=== PATIENT | male | born 1965 | race African-American/Black ===

== ENCOUNTER 2016-10-23 16:32 | Inpatient (IN) | payer OTHER ==
[~2016-10-23] VITALS: Ht 182.9 cm; Wt 105.7 kg
[~2016-10-23 16:32] MED LIST: ACID REDUCER75 MG PO; ATI1 PO; ATIVAN1 MG PO; FOL1 PO; FOLIC ACID1 MG PO; LATANOPROST OU; LOPERAMIDE2 MG PO; MECLIZINE HYD12.5 MG PO; METOPROLOL TART25 M1; METOPROLOL TART25 M1 PO; MOTRIN800 MG PO; PAROXETINE HCL20 M1 PO; PRA40; PRA40 PO; PROMETHAZINE12.5 M4 PO; SIMVASTATIN10 M1 PO; THI100 PO; TRAZODONE50 M1 PO; ZOF4 PO
--- NOTE | 2016-10-23 16:57 | NUR ---
PT WAS BROUGHT IN TO ED BY SIGNIFICANT OTHER W/CC OF ALCOHOL INTOXICATION AND CP. PT REPORTS HE'S BEEN DRINKING FOR 12-14 DAYS STRAIGHT. PT COMBATIVE AND UNCOOPERATIVE SCREAMING "I DON'T LIKE WHITE PEOPLE. DON'T FUCKING TOUCH ME". SIGNIFICANT OTHER AT BEDSIDE ATTEMPTING TO CALM PT. PT PLACED ON 4PT RESTRAINTS FOR SAFETY DUE TO DANGER TO SELF AND OTHERS. PT ATTEMPTING TO ASSAULT STAFF THAT ARE NON-COLORED. PT REPORTS CP BUT DENIES POINT OF PAIN OR RADIATION OF PAIN. PT'S SPEECH IS SLURRED AT THIS MOMENT BUT ABLE TO RESPOND TO QUESTIONS BEING ASKED. AAOX4 AT THIS TIME. DR. DAVALOS AT BEDSIDE FOR MSE. CALL LIGHT W/IN REACH. WILL CONTINUE TO MONITOR.
[2016-10-23 17:31] LABS: BASOPHIL % 0.6 % (0-2); PLATELET COUNT 183 x10^3mcL (130-400)
[2016-10-23 17:36] LABS: RED CELL DISTRIBUTION WIDTH 15.1 % (11.5-14.5)
[2016-10-23 17:49] LABS: CALCIUM 9.1 mg/dL (8.5-10.1); CARBON DIOXIDE 20.9 mmol/L (21-32); CHLORIDE SERUM 92 mmol/L (98-107); CREATININE SERUM 0.9 mg/dL (0.7-1.3); GFR1 > 60 mL/min; GLUCOSE SERUM 105 mg/dL (74-106); SODIUM SERUM 134 mmol/L (136-145)
--- NOTE | 2016-10-23 17:52 | NUR ---
PT RETURNED FROM CT SCAN. VSS. RESPS E/U. NO S/S OF DISTRESS NOTED. PHARMACY CALLED FOR MED ORDER. SO AT BEDSIDE. WILL CONTINUE TO MONITOR.
--- NOTE | 2016-10-23 18:05 | NUR ---
MEDICATED ORDERED ORDERED. PLEASE SEE EMR.
--- NOTE | 2016-10-23 18:48 | NUR ---
PT SLEEPING ON GURNEY IN POSITION OF COMFORT. RESPS E/U. NO S/S OF DISTRESS NOTED. CALL LIGHT W/IN REACH. WILL CONTINUE TO MONITOR.
--- NOTE | 2016-10-23 19:10 | NUR ---
REPORT GIVEN TO SUKH ROBINS FOR CONTINUATION OF CARE PRIMARY RN.
--- NOTE | 2016-10-23 19:10 | NUR ---
REPORT RECEIVED FROM SUKH PARKS. ALL QUESTIONS AND CONCERNS ADDRESSED.
[2016-10-23 19:35] LABS: AMPHETAMINE QUAL UR NONE DETECTED (NEG <=1000)
--- NOTE | 2016-10-23 20:07 | NUR ---
REPORT CALLED TO BURTON LUZ, ALL QUESTIONS AND CONCERNS ADDRESSED.
--- NOTE | 2016-10-23 20:15 | NUR ---
RECEIVED PT FROM ED VIA EARLE SCHMITT. ABLE TO FOLLOW COMMANDS. NO SOB NOTED. DENIES CHEST PAIN/PRESSURE AT THIS TIME, NSR ON THE MONITOR. DENIES ABDOMINAL DISCOMFORT. W/ UNSTEADY GAIT, PT ATTEMPTS TO GET OOB. IV SITE PATENT AND INTACT. SIDE RAILS UPX2. CALL LIGHT ON REACH. PRIMARY NURSE SUPIN AT BEDSIDE FOR CONTINUITY OF CARE
[2016-10-23 20:19] LABS: ALBUMIN 4.5 g/dL (3.4-5.0); BILIRUBIN DIRECT 0.26 mg/dL (0.0-0.2); BILIRUBIN TOTAL 0.74 mg/dL (0.20-1.00); CHOLESTEROL/HDL RATIO 2.1; MAGNESIUM 2.1 mg/dL (1.8-2.4); PHOSPHOROUS 3.5 mg/dL (2.5-4.9)
[2016-10-23 20:27] LABS: T3 TOTAL 0.82 ng/mL
--- NOTE | 2016-10-23 20:30 | NUR ---
PT TRANSFERRED TO TELE BED 208B WITH MY SELF, SUKH ACHARYA, AND EMT JORDAN AT PT SIDE. PT AWAKE AND ALERT, REMAINED COOPERATIVE AT TIME OF TRANSFER, AMBULATED WITH ASSISTANCE TO TELE BED. STOCKROOM KEEPERSUKH CANO AT PT SIDE TO ASSUME OF CARE OF PT. PT TRANSFERRED WITHOUT INCIDENCE.
[2016-10-23 20:34] LABS: microscopic required? YES; urine erythrocyte TRACE (NEGATIVE)
[2016-10-23 20:41] VITALS: BP 137/91
[2016-10-23 20:43] LABS: FREE T4 1.11 ng/dL (0.76-1.46); FREE THYROXINE INDEX 3.2 ug/dL (1.4-4.5); T4(THYROXINE) 8.7 ug/dL (4.7-13.3)
--- NOTE | 2016-10-23 20:55 | NUR ---
MEDICAL STUDENT AT BEDSIDE TO ASSESS PATIENT. IVF NS CONNECTED TO LEFT WRIST AND INFUSING AT 140ML/HR. PATIENT IS AWAKE, ALERT, STS HE IS AT [facility] RIGHT NOW. ABLE TO TELL HIS BIRTHDATE. DOES NOT REMEMBER HOW OLD HE IS. ABLE TO FOLLOW COMMNANDS AND MADE NEEDS KNOWN. SITTER AT BEDSIDE. WILL CONTINUE TO MONITOR.
--- NOTE | 2016-10-23 21:52 | NUR ---
APPEARS AGITATED, WANTED TO GET OUT OF BED. UNSTEADY GAIT NOTED. INFORMED PATIENT TO USE URINAL WHEN URINATE. KEPT NPO. ATIVAN 2MG IVP GIVEN, NO ADVERSE REACTION NOTED. WILL CONTINUE TO MONITOR. SITTER 1:1 AT BEDSIDE.
[2016-10-23 23:23] VITALS: BP 157/86
--- NOTE | 2016-10-23 23:34 | NUR ---
ASSISTED TO BATHROOM FOR BM, PATIENT WAS COMBATIVE WHEN PHYSICAL THERAPY TEACHER WAS TRYING TO ASSIT HIM. ASSISTED BACK, SITTING ON THE EDGE OF BED AND REFUSED TO LAY BACK IN BED. KEPT ASKING FOR FOOD. DOCTOR POONAM NOTIFIED AND NOTED NEW ORDER FOR REGULAR DIET.
--- NOTE | 2016-10-23 23:50 | NUR ---
AGREED TO GO BACK IN BED. SANDWICH PROVIDED. TOLERATED WELL.
--- NOTE | 2016-10-24 02:14 | NUR ---
AWAKE, SITTING AT THE EDGE OF BED. REFUSED TO GO BACK TO BACK. REQUESTED A SHOWER. A WIPES PROVIDED ASSISTED BY HISTORIOGRAPHY TEACHER. UNSTEADY GAIT. ENCOURAGED TO GET BACK TO BED. ASKED FOR MORE JUICE. AGREED TO GO BACK TO BED AFTER JUICE GIVEN. ATIVAL 2MG IVP GIVEN FOR AGITATION. NO ADVERE REACTION NOTED. WILL CONTINUE TO MONITOR.
--- NOTE | 2016-10-24 04:54 | NUR ---
ASLEEP AT THIS TIME. NO ACUTE DISTRESS NOTED. IVF NS INFUSING WELL.
[2016-10-24 06:34] VITALS: BP 119/59
--- NOTE | 2016-10-24 06:35 | NUR ---
RESTING WITH EYES CLOSE. EASILY TO AROUSE. AM MEDS GIVEN, TOLERATED WELL. KEPT NPO FOR ULTRASOUND OF ABDOMEN. PATIENT MADE AWARE.
--- NOTE | 2016-10-24 07:30 | NUR ---
RECEIVED PATIENT AWAKE/ALERT IN BED NO ACUE DISTRESS NOTED, DENIES PAIN. IV INTACT, EXPLAINED POC/SAFETY MEASURES. PATIENT C/O RT LOWER BACK HAVE LUMP FOR A FEW MONTHS WANT TO BE CHECK INFORM PATIENT WILL NOTIFIED MD. NEEDS ANTICIPATED. CALL LIGHT WITHIN REACH.
[2016-10-24 08:00] VITALS: BP 137/72
--- NOTE | 2016-10-24 08:41 | NUR ---
ECHOCARDIOGRAM PENDING PATIENT HAD LAST 6 MONTHS
--- NOTE | 2016-10-24 08:45 | NUR ---
DR. CALVERT SEEN PATIENT AT THIS TIME, DISCUSS POC WITH PATIENT, MONITOR ALCHOL LEVEL IF IMPROVED POSSIBLE D/C. DR. DE LA CRUZ WAS MADE AWARE PATIENT'S RT LOWER BACK WITH LUMP.
--- NOTE | 2016-10-24 09:04 | NUR ---
PATIENT RESTING IN BED NO COMPLAINTS, ALL DUE MEDS GIVEN, NEEDS ANTICIPATED.
--- NOTE | 2016-10-24 11:22 | NUR ---
PATIENT RESTING IN BED AWAKEN, CALM, NO COMPLAINTS. BS 115 NO COVERAGE NEEDED. NEW IV BAG HANG ORDERED. CONT TO MONITOR.
--- NOTE | 2016-10-24 12:54 | NUR ---
Patient sitting in bed no complaints, done with lunch. DM teaching completed, explained s/sx; diet and exercise; lab - AIC. All questions answer.
--- NOTE | 2016-10-24 16:27 | NUR ---
PATIENT RESTING IN BED NO COMPLAINTS, SEEN BY DR. PIERCE FOR PSYCH CONSULT. BS 102 NO COVERAGE NEEDED. CONT TO MONITOR.
[2016-10-24 17:25] VITALS: BP 149/79
--- NOTE | 2016-10-24 17:33 | NUR ---
PATIENT RESTING IN BED NO COMPLAINTS, - MERY AT BEDSIDE ASKING FOR UPDATE ON PATIENT'S CONDITION; INFORM STILL CONT MONITOR ALCOHOL WITHDRAWAL; PER [employer] BLACK PATIENT NEED REHAB/SOBER. NEW IV BAG HANG, NEEDS ANTICIPATED.
--- NOTE | 2016-10-24 19:05 | NUR ---
SEEN ASLEEP, NO RESP DISTRESS NOTED ON ROOM AIR. ST AT 96 ON TELE MONITOR. IVF NS TO LEFT WRIST INFUSING WELL AT 42ML/HR. SCD TO BLE. WILL CONTINUE TO MONITOR WHEN PATIENT IS AWAKE.
[2016-10-24 21:28] VITALS: BP 161/86
[2016-10-24 22:35] VITALS: Ht 182.9 cm; Wt 105.7 kg
[2016-10-25 05:42] VITALS: BP 152/88
[2016-10-25 06:07] LABS: BASOPHIL % 0.5 % (0-2)
[2016-10-25 06:17] LABS: ALBUMIN 3.7 g/dL (3.4-5.0); ALKALINE PHOSPHATASE 64 U/L (46-116); ALT/SGPT 67 U/L (16-63); AST/SGOT 51 U/L (15-37); BILIRUBIN DIRECT 0.29 mg/dL (0.0-0.2); CARBON DIOXIDE 26.9 mmol/L (21-32); CHLORIDE SERUM 101 mmol/L (98-107); CREATININE SERUM 0.8 mg/dL (0.7-1.3); GFR1 > 60 mL/min; GLUCOSE SERUM 107 mg/dL (74-106); MAGNESIUM 1.9 mg/dL (1.8-2.4); PHOSPHOROUS 2.7 mg/dL (2.5-4.9); POTASSIUM SERUM 3.7 mmol/L (3.5-5.1); SODIUM SERUM 138 mmol/L (136-145); TOTAL PROTEIN, SERUM 7.3 g/dL (6.4-8.2)
--- NOTE | 2016-10-25 06:31 | NUR ---
NO ANY DISTRESS THROUGHOUT SHIFT. VSS. DENIES PAIN. NO AGITATION OR ANXIETY NOTED. AMBULATORY TO BATHROOM WITH STEADY GAIT. IVF NS INFUSING WELL.
[2016-10-25 07:10] LABS: PLATELET COUNT 116 x10^3mcL (130-400); RED CELL DISTRIBUTION WIDTH 14.8 % (11.5-14.5)
--- NOTE | 2016-10-25 07:50 | NUR ---
RECEIVED PT IN BED. ASSESSED AND DOCUMENTED. DENIES PAIN THIS TIME. SAFTEY PRECAUTIONS ON. WILL MONITOR.
--- NOTE | 2016-10-25 08:45 | NUR ---
AND RESIDENTS DID ROUNDS. EXPLAINED THE PLAN OF CARE AND ANSWERED ALL PT'S QUESTIONS.
[2016-10-25 09:48] VITALS: BP 153/78
[2016-10-25] MEDS ORDERED: ATIVAN1 MG PO (09:51)
[2016-10-25] MEDS ORDERED: ZOF4 PO (09:53)
[2016-10-25 10:46] VITALS: BP 153/78
[2016-10-25 12:59] VITALS: BP 134/88
[2016-10-25] MEDS ORDERED: NEU300 PO (14:55)
[2016-10-25] MEDS ORDERED: ROZEREM8 M1 PO (14:55)
--- NOTE | 2016-10-25 15:45 | NUR ---
PT'S CAME TO SHEARER HELPER PT.PT IS STABLE. DENIES PAIN.IV AND TELE REMOVED. MANAGER CODING WHEELED PT DOWN TO DC OFFICE.DC INSTRUCTION GIVEN AND PRESCRIPTION GIBVEN.PT DC HOME.
== END 2016-10-25 15:45 | disposition home or self-care (01) | DRG 243 ==
LOC: ED 16:32 → DU 19:32
PROVIDERS: Emergency Medicine; ADMIT Family Medicine
DX: K21.9 Gastro-esophageal reflux disease without esophagitis (principal); N17.0 Acute kidney failure with tubular necrosis; G92 Toxic encephalopathy; F10.10 Alcohol abuse, uncomplicated; I10 Essential (primary) hypertension; R31.9 Hematuria, unspecified; F41.9 Anxiety disorder, unspecified; Z86.711 Personal history of pulmonary embolism; R74.0 Nonspecific elevation of levels of transaminase and lactic acid dehydrogenase [LDH]; F17.210 Nicotine dependence, cigarettes, uncomplicated; D17.1 Benign lipomatous neoplasm of skin and subcutaneous tissue of trunk
CPT/HCPCS: 83880; 84439; G0480; J2060; J2270; J2405; J3411; J7030; Q0092

== ENCOUNTER 2016-11-24 16:36 | Inpatient (IN) | payer OTHER ==
[~2016-11-24] VITALS: Ht 182.9 cm; Wt 87.1 kg
[~2016-11-24 16:36] MED LIST changes: +NEU300 PO; +ROZEREM8 M1 PO
--- NOTE | 2016-11-24 16:43 | NUR ---
EKG IN TRIAGE
--- NOTE | 2016-11-24 16:50 | NUR ---
WHEN ENTERED THE ROOM, I WAS ASSESSING PT AND I TOUCHED HIS SHOUDER WHILE ASKING QUESTIONS AND HE STOOD UP AND SAID "I DONT WANT YOU TOUCHING ME, I DON'T EVEN NOW WY I AM HERE."
--- NOTE | 2016-11-24 17:03 | NUR ---
PT EXAMINED BY DR MADDOX
[2016-11-24 17:35] LABS: PLATELET COUNT 134 x10^3mcL (130-400)
[2016-11-24 17:36] LABS: RED CELL DISTRIBUTION WIDTH 14.9 % (11.5-14.5)
[2016-11-24 17:47] LABS: CALCIUM 8.8 mg/dL (8.5-10.1); CARBON DIOXIDE 22.4 mmol/L (21-32); CHLORIDE SERUM 100 mmol/L (98-107); CREATININE SERUM 0.8 mg/dL (0.7-1.3); GFR1 > 60 mL/min; GLUCOSE SERUM 86 mg/dL (74-106); POTASSIUM SERUM 3.8 mmol/L (3.5-5.1); SODIUM SERUM 140 mmol/L (136-145)
--- NOTE | 2016-11-24 17:47 | NUR ---
PT UNJABLE TO PROVIDE URINE SAMPLE AT THIS TIME.
[2016-11-24 17:59] LABS: ALBUMIN 4.6 g/dL (3.4-5.0); ALKALINE PHOSPHATASE 67 U/L (46-116); ALT/SGPT 113 U/L (16-63); AMYLASE 99 U/L (25-115); AST/SGOT 93 U/L (15-37); BILIRUBIN TOTAL 0.5 mg/dL (0.20-1.00); LIPASE 233 IU/L (73-393); MAGNESIUM 2.1 mg/dL (1.8-2.4); T4(THYROXINE) 6.6 ug/dL (4.7-13.3)
[2016-11-24 18:00] LABS: CHOLESTEROL 271 mg/dL (<200); HDL CHOLESTEROL 125 mg/dL (40-60); TOTAL PROTEIN, SERUM 9.1 g/dL (6.4-8.2)
--- NOTE | 2016-11-24 18:15 | NUR ---
PT AMBULATED TO AND FROM RESTROOM WITH STEADY GAIT NOTED, WITHOUT INCIDENCE.
--- NOTE | 2016-11-24 18:35 | NUR ---
PT VOMITIJNG CLEAR FLUID. DR MADDOX MADE AWARE, MEDICATED FOR NAUSEA, SEE EMAR.,
--- NOTE | 2016-11-24 18:47 | NUR ---
PT TAKEN TO CT VIA RIESHA.
--- NOTE | 2016-11-24 19:22 | NUR ---
RECEIVED REPORT FROM SUKH MASSEY, ALL QUESTIONS AND CONCERNS ADDRESSED AT THIS TIME.
[2016-11-24 19:33] LABS: microscopic required? YES; urine erythrocyte TRACE (NEGATIVE)
[2016-11-24 19:44] LABS: AMPHETAMINE QUAL UR NONE DETECTED (NEG <=1000)
[2016-11-24 21:02] LABS: CHOLESTEROL/HDL RATIO 2.3; PHOSPHOROUS 3.3 mg/dL (2.5-4.9)
--- NOTE | 2016-11-24 21:02 | NUR ---
REPORT GIVEN TO SUKH PAEZ. ALL QUESTIONS AND CONCERNS ADDRESSED AT THIS TIME.
[2016-11-24 21:24] VITALS: BP 155/90
--- NOTE | 2016-11-24 21:31 | NUR ---
RECEIVED PT FROM ED VIA OSKAR. ORIENTED PT TO ROOM AND SURROUNDINGS. IV NOTED TO LFA PATENT AND INTACT .TELE 13 PLACED ON PT READING STA. INSTRUCTED PT ON THE USE OF CALL LIGHT FOR ASSISATNCE. ENDORSED PT TO PRIMARY NURSE MELI
--- NOTE | 2016-11-24 22:42 | NUR ---
RECEIVED PT IN BED. NEW ADNM. FROM ER. ALERT AND ORIENTED. DENIES HEADACHE/DIZZINESS. RESP. EVEN AND UNLABORED, ON ROOM AIR, LUNGS SOUNDS CLEAR BILAT. NO DISTRESS NOTED. AFEBRILE AND VITAL SIGNS STABLE. ST/SR ON THE MONITOR, DENIES CHEST PAIN OR ANY DISCOMFORT AT THIS TIME. DUE MEDS GIVEN ORDERED, YESENIA. WELL. STARTED ON IVF, NS AT 100ML/HR, INFUSING VIA LFA, SITE CLEAR. KEPT COMFORTABLE. CALL LIGHT WITHIN REACH, INSTRUCTED TO CALL FOR ASSIST. IF NEEDED, PT VERBALIZED UNDERSTANDING.WILL CONTINUE TO MONITOR.
[2016-11-25 06:17] LABS: CALCIUM 7.9 mg/dL (8.5-10.1); CARBON DIOXIDE 18.8 mmol/L (21-32); CHLORIDE SERUM 100 mmol/L (98-107); CREATININE SERUM 0.7 mg/dL (0.7-1.3); GFR1 > 60 mL/min; GLUCOSE SERUM 62 mg/dL (74-106); MAGNESIUM 2.2 mg/dL (1.8-2.4); POTASSIUM SERUM 3.8 mmol/L (3.5-5.1); SODIUM SERUM 140 mmol/L (136-145)
[2016-11-25 06:19] LABS: BASOPHIL % 0.7 % (0-2)
--- NOTE | 2016-11-25 06:26 | NUR ---
NO AGITATION NOTED. CALM AT THIS TIME. DUE MEDS GIVEN ORDERED, YESENIA. WELL. NO N/V NOTED. IVF INTACT AND INFUSING ORDERED. SITE CLEAR. AFEBRILE AND VITAL SIGNS STABLE. DENIES PAIN OR ANY DISCOMFORT. WILL CONTINUE TO MONITOR.
[2016-11-25 06:29] VITALS: BP 150/71
[2016-11-25 06:46] LABS: PLATELET COUNT 114 x10^3mcL (130-400); RED CELL DISTRIBUTION WIDTH 14.9 % (11.5-14.5)
--- NOTE | 2016-11-25 07:50 | NUR ---
PATEINT IS A/OX4. PT IS TERRA. SEIZURE PRECATIONS ORDERED. ALL PULSES PALPABLE. PT IS QUIETLY RESTING IN BED AT THIS TIME. SCDS ARE APPLIED TO LOWER EXTREMITIES BILATERALLY. LUNG SOUNDS ARE CLEAR BILATERALLY WITH NO SIGNS OF RESPIRATOORY DISTRESS. PT HAS SMALL PERSISTANT TREMORS. DENIES CHEST PAIN. BOWEL SOUNDS ARE ACTIVE. PT IS VOIDS WELL WITH NO DIFFICULTY. IV FLUIDS INFUSING ORDERED. CALL LIGHT WITHIN REACH. WILL MONITOR AND CONTINUE PLAN OF CARE.
--- NOTE | 2016-11-25 09:00 | NUR ---
DR PECK MADE ROUNDS WITH OTHER MEDICAL STAFF. WILL UPDATE PLAN OF CARE.
--- NOTE | 2016-11-25 09:10 | NUR ---
PT COMPLAINED OF HEADACHE. TYLENOL WAS GIVEN ORDERED. WILL REASSESS.
--- NOTE | 2016-11-25 09:45 | NUR ---
PT IS RESTING COMFORTABLE IN BED. DENIES HEADACHE AT THIS TIME.
--- NOTE | 2016-11-25 10:00 | NUR ---
PT COMPLAINED OF BEING NAUSEATED. MEDICATION GIVEN ORDERED FOR NAUSEA.
--- NOTE | 2016-11-25 11:30 | NUR ---
PT HAD SHOWER ORDERED. FEELS MUCH BETTER AND COMFORTABLE IN BED. CALL LIGHT WITHIN REACH. DENIES ANY PAIN AT THIS TIME.
--- NOTE | 2016-11-25 12:00 | NUR ---
PT COMPLAIN OF HEARTBURN. DR BARBER NOTIFIED AND MADE AWARE. NO NEW FURTHER ORDERS AT THIS TIME.
[2016-11-25 13:54] VITALS: BP 153/88
--- NOTE | 2016-11-25 14:34 | NUR ---
[facility] VALUE [address]69. DR BARBER NOTIFIED AND MADE AWARE. NO FURTHER ORDERS AT THIS TIME.
--- NOTE | 2016-11-25 17:52 | NUR ---
PT IS RESTING CALMLY IN BED. DENIES HEADACHE AT THIS TIME. . DENIES ANY PAIN AT THIS TIME. CALL LIGHT WITHIN REACH.
[2016-11-25 18:19] VITALS: BP 141/83
--- NOTE | 2016-11-25 20:00 | NUR ---
RECEIVED PT IN BED AAOX4 NO ACUTE DISTRESS NOTED, PT DENY PAIN AT THE MOMENT , LUNG SOUNDS CTA, ABD SOFT BS ACTIVE X4 , PT C/O LOOSE STOOL , WILL CON'T TO MONITOR PT CLOSELY , , PT'S ON TELE NUMBER [address] HR 101, PIV TO LFA INTACT INFUSING WELL , NO SZ ACTIVITU NOTED, SIDE RAILS PADDED FOR SAFETY.
[2016-11-25 20:48] VITALS: BP 149/81
--- NOTE | 2016-11-26 01:28 | NUR ---
RECEIVED REPORT FROM PIA LUZ. WILL ASSUME PT CARE. PT IS CURRENTLY RESTING IN POSITION OF COMFORT. PT BREATHING IS EVEN AND UNLABORED. IV TO LFA PATENT AND INFUSING WELL, RUNNING NS AT 125 ML/HR. NO S/S OF PAIN OR DISTRESS NOTED AT THIS TIME. HOB AT 45 DEGREES. CALL LIGHT WITHIN REACH. WILL CONTINUE TO MONITOR FOR ANY ACUTE CHANGES.
[2016-11-26 05:16] VITALS: BP 146/79
[2016-11-26 07:19] LABS: PLATELET COUNT 109 x10^3mcL (130-400); RED CELL DISTRIBUTION WIDTH 14.6 % (11.5-14.5)
--- NOTE | 2016-11-26 07:20 | NUR ---
PT RECEIVED. AT THIS TIME THE PATIENT IS RESTING IN BED. PT IS AAO X 4. SEIZURE PRECAUTIONS INITIATED. CARDIAC TELE NUMBER [address]. PATIENT RESPIRATIONS ARE EVEN AND UNLABORED ON ROOM AIR. IV IS INFUSING. ALL SAFETY PRECAUTIONS ARE IN PLACE. WILL CONTINUE TO MONITOR.
[2016-11-26 07:39] LABS: CALCIUM 8.4 mg/dL (8.5-10.1); CARBON DIOXIDE 21.9 mmol/L (21-32); CHLORIDE SERUM 100 mmol/L (98-107); CREATININE SERUM 0.7 mg/dL (0.7-1.3); GFR1 > 60 mL/min; GLUCOSE SERUM 95 mg/dL (74-106); MAGNESIUM 2.1 mg/dL (1.8-2.4); PHOSPHOROUS 1.8 mg/dL (2.5-4.9); POTASSIUM SERUM 4.3 mmol/L (3.5-5.1); SODIUM SERUM 137 mmol/L (136-145)
[2016-11-26 07:42] VITALS: BP 148/84
--- NOTE | 2016-11-26 08:20 | NUR ---
DR DOTY AND TEAM TALKED TO THE PATIENT. ALL PATIENT QUESTIONS WERE ANSWERED. PT REQUESTED TO STAY IN HOSPITAL AN ADDITIONAL DAY. WILL CONTINUE TO MONITOR PT.
[2016-11-26 10:26] VITALS: BP 138/71
--- NOTE | 2016-11-26 12:40 | NUR ---
PT IS CURRENTLY RESTING IN BED. PT C/O ABDOMINAL PAIN WHICH WAS TREATED WITH TORADOL. WILL CONTINUE TO MONITOR PAIN LEVEL. ALL SAFETY MEASURES IN PLACE.
--- NOTE | 2016-11-26 17:10 | NUR ---
PT REQUESTED TO SHOWER. DR GO GAVE OK FOR PATIENT TO SHOWER. PATIENT HAS BEEN SALINE LOCKED. IV SITE WAS WRAPPED WITH WATERPROOF COVERING. PT WAS ABLE TO SHOWER HIMSELF. TOLERATED PROCEDURE WELL. ALL SAFETY MEASURES IN PLACE. WILL CONTINUE TO MONITOR.
[2016-11-26 17:19] VITALS: BP 129/81
--- NOTE | 2016-11-26 18:10 | NUR ---
PT IS CURRENTLY EATING. NO SIGNS OF ACUTE DISTRESS ARE NOTED. NO INDICATION OF PAIN NOTED. WILL CONTINUE TO MONITOR PT AND ENDORSE CARE TO NEXT SHIFT AT SHIFT CHANGE.
--- NOTE | 2016-11-26 20:25 | NUR ---
AWAKE AND VERBALLY RESPONSIVE. ABLE TO MAKE NEEDS KNOWN. SKIN WARM AND DRY TO TOUCH, RESPIRATION EVEN AND UNLABORED,DENIES ANY SHORTNESS OF BREATHE. DENIES ANY CHEST PAIN/DISCOMFORT AT THIS TIME. PLACED CALL LIGHT WITHIN REACH AND INSTRUCTED TO CALL FOR ASSITANCE NEEDED AND VERBALIZED UNDERSTANDING.
[2016-11-26 21:02] VITALS: BP 142/73
--- NOTE | 2016-11-27 00:10 | NUR ---
EYES CLSOED, NO FACIAL GRIAMCING NOTED. RESPIRATION EVEN AND UNLABORED. NO S/S OF ACUTE DISTRESS. CALL LIGHT WITHIN REACH. CONTINUE TO MONITOR.
[2016-11-27 06:02] LABS: BASOPHIL % 0.4 % (0-2); RED CELL DISTRIBUTION WIDTH 14.4 % (11.5-14.5)
[2016-11-27 06:04] VITALS: BP 140/83
--- NOTE | 2016-11-27 06:19 | NUR ---
BLOOD SUGAR TAKEN 132MG/DL. NO INSULIN COVERAGE GIVEN. ALL DUE MEDICATIONS GIVEN AND WELL TOLERATED. DENIES ANY CHEST PAIN/DISCOMFORT. ALL NEEDS ATTENDED.
[2016-11-27 06:36] LABS: CALCIUM 8.5 mg/dL (8.5-10.1); CARBON DIOXIDE 23.6 mmol/L (21-32); CHLORIDE SERUM 104 mmol/L (98-107); CREATININE SERUM 0.7 mg/dL (0.7-1.3); GFR1 > 60 mL/min; GLUCOSE SERUM 130 mg/dL (74-106); MAGNESIUM 1.8 mg/dL (1.8-2.4); PHOSPHOROUS 2.5 mg/dL (2.5-4.9); POTASSIUM SERUM 3.7 mmol/L (3.5-5.1); SODIUM SERUM 137 mmol/L (136-145)
[2016-11-27 06:42] LABS: PLATELET COUNT 106 x10^3mcL (130-400)
--- NOTE | 2016-11-27 07:10 | NUR ---
RESTING IN BED, AROUSABLE TO LIGHT NOISE, ABLE TO VERBALIZE NEEDS WITH CLEAR AND COHERENT SPEECH, ON TELE #13 SR ON MONITOR, RRR, S1&S2 NOTED, DENIES CHEST PAIN, PRESSURE, OR DISCOMFORT, IV AT LFA INFUSING NS AT 125ML/HR, CALL LIGHT WITHIN REACH, WILL CONTINUE TO PROVIDE CARE.
--- NOTE | 2016-11-27 08:39 | NUR ---
ABLE TO TAKE ALL PO MEDS WITHOUT GI DISTRESS, DENIES HEART RELATED PAIN, PRESSURE OR DISCOMFORT, VITAL SIGNS WNL, BP 123/83
--- NOTE | 2016-11-27 09:15 | NUR ---
ROUNDS WITH DR LO AND MEDICAL TEAM, UPDATED PT ON CURRENT POC.
[2016-11-27 09:22] VITALS: BP 123/83
[2016-11-27] MEDS ORDERED: LIPI10 PO (09:49)
[2016-11-27] MEDS ORDERED: THERAGRAN-M1 TA4 PO (09:50)
[2016-11-27] MEDS ORDERED: THI100 PO (09:50)
[2016-11-27] MEDS ORDERED: FOL1 PO (09:50)
[2016-11-27] MEDS ORDERED: ECO81 PO (09:52)
[2016-11-27] MEDS ORDERED: TYL325 PO (10:57)
[2016-11-27] MEDS ORDERED: PRI20 PO (10:59)
[2016-11-27] MEDS ORDERED: ATI1 PO (10:59)
[2016-11-27 11:28] VITALS: BP 123/83
--- NOTE | 2016-11-27 11:48 | NUR ---
PATIENT DISCHARGED HOME, REVIEWED DISCHARGE INSTRUCTIONS WITH PATIENT AND , INCLUDING CALLING PCP ON 11/29/16 TO SCHEDULE A FOLLOW UP APPOINTMENT, PATIENT AND VERBALIZED UNDERSTANDING OF DISCHARGE INSTRUCTIONS. PATIENT AMBULATED DOWNSTAIRS WITH AND PRIMARY RN.
== END 2016-11-27 11:48 | disposition home or self-care (01) | DRG 243 ==
LOC: ED 16:36 → DU 20:13
PROVIDERS: Emergency Medicine; ADMIT Family Medicine
DX: K21.9 Gastro-esophageal reflux disease without esophagitis (principal); N17.0 Acute kidney failure with tubular necrosis; G92 Toxic encephalopathy; D61.818 Other pancytopenia; K70.0 Alcoholic fatty liver; F10.229 Alcohol dependence with intoxication, unspecified; F10.239 Alcohol dependence with withdrawal, unspecified; T51.0X1A Toxic effect of ethanol, accidental (unintentional), initial encounter; B08.1 Molluscum contagiosum; I10 Essential (primary) hypertension; E78.5 Hyperlipidemia, unspecified; F33.9 Major depressive disorder, recurrent, unspecified; F41.0 Panic disorder [episodic paroxysmal anxiety]; F17.210 Nicotine dependence, cigarettes, uncomplicated; Z68.26 Body mass index [BMI] 26.0-26.9, adult; Z91.19 Patient's noncompliance with other medical treatment and regimen; Y90.8 Blood alcohol level of 240 mg/100 ml or more; Y92.009 Unspecified place in unspecified non-institutional (private) residence as the place of occurrence of the external cause
CPT/HCPCS: 36600; 83880; 85378; G0480; J1885; J2405; J3490; J7030; Q0092; Q9967

== ENCOUNTER 2017-01-20 12:52 | Inpatient (IN) | payer OTHER ==
[~2017-01-20] VITALS: Ht 182.9 cm; Wt 101.8 kg
[~2017-01-20 12:52] MED LIST changes: +ECO81 PO; +LIPI10 PO; +PRI20 PO; +THERAGRAN-M1 TA4 PO; +TYL325 PO
--- NOTE | 2017-01-20 13:25 | NUR ---
PT BIBA C/O ETOH AND VOMITING BLOOD THIS AM. PT'S STS PT HAS BEEN DRINKING SINCE DEC 31, 2016, EVERYDAY. PLACED PT ON CM. VSS. PT A/O X 4, PT'S REP E/U, PT ABLE TO SPEAK FULL SENTENCES. AWAITING DR PEOPLES.
--- NOTE | 2017-01-20 14:05 | NUR ---
DR ACKERMAN AT BEDSIDE
[2017-01-20 15:08] LABS: BASOPHIL % 0 % (0-2); PLATELET COUNT 113 x10^3mcL (130-400)
--- NOTE | 2017-01-20 15:13 | NUR ---
MRSA SPECIMEN TAKEN AND SENT TO THE LAB
[2017-01-20 15:29] LABS: CALCIUM 8.4 mg/dL (8.5-10.1); CARBON DIOXIDE 26.5 mmol/L (21-32); CHLORIDE SERUM 82 mmol/L (98-107); CREATININE SERUM 0.8 mg/dL (0.7-1.3); GFR1 > 60 mL/min; GLUCOSE SERUM 176 mg/dL (74-106); POTASSIUM SERUM 3.5 mmol/L (3.5-5.1); SODIUM SERUM 127 mmol/L (136-145)
[2017-01-20 15:34] LABS: ALBUMIN 3.9 g/dL (3.4-5.0); ALKALINE PHOSPHATASE 78 U/L (46-116); ALT/SGPT 71 U/L (16-63); AST/SGOT 67 U/L (15-37); BILIRUBIN TOTAL 0.9 mg/dL (0.20-1.00); TOTAL PROTEIN, SERUM 8.8 g/dL (6.4-8.2)
--- NOTE | 2017-01-20 16:15 | NUR ---
MEDICATED PT ORDERED, SEE MAR. WILL MONITOR FOR ADVERSE REACTIONS
[2017-01-20 16:49] LABS: MAGNESIUM 2.6 mg/dL (1.8-2.4); PHOSPHOROUS 3.1 mg/dL (2.5-4.9)
[2017-01-20 16:52] LABS: FREE T4 0.89 ng/dL (0.76-1.46); FREE THYROXINE INDEX 2.6 ug/dL (1.4-4.5); T3 TOTAL 0.42 ng/mL; T4(THYROXINE) 6.9 ug/dL (4.7-13.3)
--- NOTE | 2017-01-20 16:52 | NUR ---
INSTRUCTIONAL TECHNOLOGY FACILITATOR AT BEDSIDE
[2017-01-20 16:55] LABS: CHOLESTEROL/HDL RATIO 2.4
[2017-01-20 17:29] VITALS: BP 164/95
--- NOTE | 2017-01-20 17:33 | NUR ---
RECEIVED PT FROM ED VIA OSKAR. ORIENTED PT TO ROOM AND SURROUNDINGS. IV NOTED TO RH PATENT AND INTACT .TELE 2 PLACED ON PT READING STA. INSTRUCTED PT ON THE USE OF CALL LIGHT FOR ASSISTANCE. ENDORSED PT TO PRIMARY NURSE LATRELL
--- NOTE | 2017-01-20 18:10 | NUR ---
PT RESTING IN BED, COMPLAINING OF NAUSEA, TREMORS, AND ANXIETY, NO RESPIRATORY DISTRESS NOTED. STATED HE PREFERRED ATIVAN IV BECAUSE IT WORKS FASTER. ATIVAN IV AND ZOFRAN IV GIVEN. EMESIS BAGS PLACED AT BEDSIDE, CALL LIGHT WITHIN REACH.
--- NOTE | 2017-01-20 18:45 | NUR ---
PT RESTING IN BED, NO RESPIRATORY DISTRESS NOTED, CONTINUES TO COMPLAIN OF NAUSEA.
[2017-01-20 18:48] LABS: AMYLASE 61 U/L (25-115); LIPASE 197 IU/L (73-393)
--- NOTE | 2017-01-20 19:19 | NUR ---
DEXTROSE 5% NACL 0.9% 1000 ML @ 150 ML/HR CONFIRMED WITH DR HA BEFORE ADMINISTERING. PT RESTING IN BED, NO RESPIRATORY DISTRESS NOTED.
--- NOTE | 2017-01-20 19:35 | NUR ---
RECEIVED A BEDSIDE REPORT. SEEN IN BED AAOX4. BREATHING EASY ON ROOM AIR. GEN BODY WEAKNESS. SEIZURE PRECAUTION FOR ALC WITHDRAWAL PROTOCAL MAINTAINED. TEL# [address] LUNG SOUND CTA. NO VOMITING NOTED AT THIS TIME, STS JUST MILD NAUSEA. KEPT NPO. IVF D5NS AT 150ML/HR INFUSING WELL TO RT HAND IV SITE. SCD TO BLE INPLACED. PLAN OF CARE DISCUSSED. CALL LIGHT PLACED WITHIN EASY REACH. SIDERAILS UP X2.
--- NOTE | 2017-01-20 20:00 | NUR ---
INCONTINENCE AT THIS TIME, FELICITAS GARNER CHANGED. ENCOURAGED PATIENT TO USE URINAL TO VOID. WILL CONTINUE TO MONITOR.
[2017-01-20 20:03] VITALS: BP 155/74
--- NOTE | 2017-01-20 20:14 | NUR ---
FEBRILE 100.7, TYLENOL 650MG PO GIVEN. STS HAVING TIGHTNESS AND PAIN TO CHEST AREA 5/10 ON PAIN SCALE. BP 155/74, HR 125. MORPHINE 2MG IVP SLOWLY GIVEN. IVF DTNS CONTINUED ATG 150ML/HR.
--- NOTE | 2017-01-20 20:30 | NUR ---
SEEN BY DOCTOR SEBAS. EGD SCHEDULED FOR TOMORROW. PATIENT MADE AWARE AND STS " HE ALREAYD EXPLAINED IT TO ME".
--- NOTE | 2017-01-20 22:00 | NUR ---
CONSENT FOR ESOPHAGOGASTRODUODENOSCOPY AND MODERATE ANESTHESIA SIGNED BY PATIENT WHO IS AWAKE, ALERT, ORIENTED X4.
[2017-01-20 23:19] VITALS: BP 112/73
--- NOTE | 2017-01-21 01:44 | NUR ---
PATIENT CALLED STS IV BEEPING. FOUND BLOOD STAIN ON THE LINEN WITH ONE SMALL CLOT. PATIENT STS HE THROWING UP. LINEN AND GOWN CHANGED. DENIES DIZZINESS OR HEADACHE. ATIVAN 2MG IV GIVEN FOR TREMUR AND AGITATION. WILL CONTINUE TO MONITOR. IVF D5NS CONTINUED AT 150ML/HR.
--- NOTE | 2017-01-21 03:00 | NUR ---
DOCTOR RALEIGH NOTIFIED OF THE CURRENT CONDITION. WILL CONTINUE TO MONITOR.
[2017-01-21 03:10] LABS: microscopic required? YES; urine erythrocyte 3+ (NEGATIVE)
[2017-01-21 03:29] LABS: AMPHETAMINE QUAL UR NONE DETECTED (NEG <=1000)
[2017-01-21 05:45] VITALS: BP 148/82
--- NOTE | 2017-01-21 05:46 | NUR ---
KEPT NPO FOR EGD. V/S STABLE, AFEBRILE THIS MORNING. DENIES PAIN. VOIDED VIA URINAL. NO BM. NO SEIZURE ACTIVITY. IVF D5NS CONTINUED AT 150ML/HR.
[2017-01-21 06:12] LABS: BASOPHIL % 0.4 % (0-2); RED CELL DISTRIBUTION WIDTH 13.9 % (11.5-14.5)
[2017-01-21 06:35] LABS: CARBON DIOXIDE 28.2 mmol/L (21-32); CHLORIDE SERUM 85 mmol/L (98-107); CREATININE SERUM 0.7 mg/dL (0.7-1.3); GFR1 > 60 mL/min; GLUCOSE SERUM 159 mg/dL (74-106); MAGNESIUM 2.1 mg/dL (1.8-2.4); PHOSPHOROUS 1.3 mg/dL (2.5-4.9); POTASSIUM SERUM 3.3 mmol/L (3.5-5.1); SODIUM SERUM 125 mmol/L (136-145)
[2017-01-21 07:47] LABS: PLATELET COUNT 74 x10^3mcL (130-400)
--- NOTE | 2017-01-21 08:00 | NUR ---
AWAKE DROWSY BUT AROUSABLE. ALERT TO NAME, , DATE, TIME AND PLACE. SEIZURE PRECAUTIONS IN PLACE. ALCOHOL WITHDRAWL PROTOCOL. TEMP 98.9. TELE #2 SINUS TACH RATE 116. RESP 18 EVEN. BREATH SOUNDS CLEAR. NO COUGH OR SOB. PULSE OX 100% RA. ABD SOFT, BOWEL TONES PRESENT. FOR EGD THIS AM. NO EDEMA. PULSES PRESENT. SCD IN PLACE. IV PATENT RIGHT HAND. CONVERTED TO SALINE LOCK. ARMBAND IDENTIFIED. PT TAKEN TO GI LAB [facility]IA [facility] AT THIS TIME.
--- NOTE | 2017-01-21 09:20 | NUR ---
PT RETURNED TO ROOM VIA GURNEY FROM GI LAB. AWAKE BUT DROWSY. FOLLOWS COMMANDS. ABLE TO STAND AND PIVOT TO BED. PT WEAK AND UNSTEADY. FALL PRECAUTIONS. BED ALARM ON. INSTRUCTED PT TO CALL FOR NURSE WHEN NEEDS TO URINATE. VERBALIZED UNDERSTANDING. TEMP 98.8 TQ=081, RESP 18, KN=362/80. PULSE OX 100% RA. IV SITE SWOLLEN, DC CATH TIP INTACT. RESTARTED #22 ANGIO TO RAC. IVF RESUMED NORMAL SALINE 150CC/HR. SIDE RAILS UP X3 PADDED FOR SEIZURE PRECAUTIONS. NO SEIZURE ACTIVITY NOTED. CALL LIGHT IN REACH. WILL CONTINUE TO MONITOR FOR SAFETY.
[2017-01-21 09:30] VITALS: BP 154/80
--- NOTE | 2017-01-21 11:30 | NUR ---
PT GOT OOB ON OWN. HAD LARGE EXPLOSIVE LOOSE DARK BROWNISH BLACK LIQUID STOOL WITH SOME SOFT STOOL MIXED ALL OVER THE BED, FLOOR, ALSO ON BED NEAR THE WINDOW PT WAS TRYING TO GET TO THE BATHROOM. ASSISTED THE PT BACK TO BED. BED BATH, GOWN AND LINEN CHANGED. MADE COMFORTABLE IN BED. BED ALARM ON. CALL LIGHT IN REACH. REMAINS DROWSY BUT FOLLOWS COMMANDS. SIDE RAILS UP X3. WILL CONTINUE TO MONITOR. MADE AWARE. AYA=[id number]. TO START ON CARDIAC DIET FOR LUNCH. PO FLUIDS GIVEN. TAKEN WELL WITH MEDS.
[2017-01-21 14:16] VITALS: BP 140/64
--- NOTE | 2017-01-21 16:30 | NUR ---
PED=[id number]. PT AWAKE. SITTING ON BEDSIDE VISITING WITH . UPDATED DR WITH PT STATUS. WILL BE OVER TO SPEAK WITH PT AND . VOIDED 300CC INGRID URINE. BED ALARM ON. WILL CONTINUE TO MONITOR.
--- NOTE | 2017-01-21 16:45 | NUR ---
DR LION HERE TO SPEAK WITH PT AND .
[2017-01-21 16:56] VITALS: BP 142/70
--- NOTE | 2017-01-21 19:15 | NUR ---
REPORT WITH BRIAN LUZ PUBLIC INFORMATION RELATIONS MANAGER AT BEDSIDE. PT AWAKE WATCHING TV. NO DISTRESS. BED ALARM ON. CALL LIGHT IN REACH. IV PATENT. INSTRUCTED TO CALL FOR ASSISTANCE. VERBALIZED UNDERSTANDING.
--- NOTE | 2017-01-21 19:20 | NUR ---
RECEIVED PT LAYING IN BED. SEIZURE PRECAUTIONS IN PLACE. PT IS A/O X4. ALCOHOL PROTOCOL. PT IS ON TELE #2, SINUS TACH AT 106. PT DENIES CHEST PAIN. BILAT PERIPHERAL PULSES ARE PALPABLE. NO EDEMA NOTED. SCD IN PLACE. PT IS BREATHING ON RM, 02 SAT 98%. PT BREATHING EVEN AND UNLABORED. PT DENIES SOB. PT DOES NOT APPEAR TO BE IN RESP DISTRESS. PT LAST BM WAS EARLIER TODAY. ABD IS SOFT AND ROUND WITH ACTIVE BOWEL SOUNDS. PT DENIES N/V. PT IS ABLE TO FREELY VOID URINE WITHOUT DIFFICULTY. URINAL AT BEDSIDE. PT IS ABLE TO AMBULATE SELF BUT DOES HAVE MILD WEAKNESS. TREMORS ARE ALSO NOTED. BED ALARM IS ACTIVATED. PT SKIN IN DRY AND INTACT. NO REDNESS OR ECCHYMOSIS NOTED. PT DENIES PAIN AT THIS TIME. IV FLUIDS ARE INFUSING INTO THE RAC PER DOCTOR'S ORDERS. IV SITE IS DRY, PATENT, AND INTACT. ROOM IS FREE OF ANY SAFETY HAZARDS. BED IN LOWEST POSITION WITH PADDED SIDE RAILS UP. CALL LIGHT WITHIN REACH. WILL CONTINUE TO MONITOR
[2017-01-21 22:13] VITALS: BP 139/81
--- NOTE | 2017-01-22 00:13 | NUR ---
NOTIFIED OF PATIENT INCIDENT, PATIENT FOUND ON THE FLOOR. PT STATED HE SLIPPED ON WATER. WATER FOUND THROUGHOUT BATHROOM FLOOR, PT STATED HE WAS IN THE BATHROOM WASHING HIS CLOTHES. YELLOW SOCKS FOUND ON SINK, PT DENIES HITTING HIS HEAD AND OTHER INJURIES, CHARGE NURSE AND PHYSICIAN MADE AWARE, AWAITING ORDERS, WILL CONTINUE TO MONITOR
--- NOTE | 2017-01-22 01:56 | NUR ---
PT IS LAYING IN BED WITH EYES CLOSED, ASLEEP AT THIS TIME. PT DOES NOT APPEAR TO BE IN ANY DISTRESS AT THIS TIME. WILL CONTINUE TO MONITOR
[2017-01-22 05:33] VITALS: BP 152/84
--- NOTE | 2017-01-22 05:48 | NUR ---
PT STATED HE WAS ABLE TO RECEIVE A GOOD NIGHT'S REST. NO SIGNIFICANT CHANGES TO REPORT. PT COMPLIED WITH NURSING CARE THROUGHOUT THE SHIFT. PT REMAINS ON ETOH PROTOCOL. SEIZURE PRECAUTIONS REMAIN IN PLACE. IV FLUIDS REMAIN INFUSING IN THE RAC PER DOCTOR'S ORDER. IV SITE REMAINS, DRY, PATENT, AND INTACT. ROOM IS FREE OF SAFETY HAZARDS. BED IN LOWEST POSITION WITH SIDE RAILS UP X3. CALL LIGHT WITHIN REACH. WILL ENDORSE CARE TO DAY NURSE
[2017-01-22 06:19] LABS: BASOPHIL % 0.7 % (0-2); RED CELL DISTRIBUTION WIDTH 13.7 % (11.5-14.5)
[2017-01-22 06:23] LABS: PLATELET COUNT 60 x10^3mcL (130-400)
[2017-01-22 06:34] LABS: CALCIUM 8.4 mg/dL (8.5-10.1); CARBON DIOXIDE 29.1 mmol/L (21-32); CHLORIDE SERUM 93 mmol/L (98-107); CREATININE SERUM 0.7 mg/dL (0.7-1.3); GFR1 > 60 mL/min; GLUCOSE SERUM 98 mg/dL (74-106); PHOSPHOROUS 1.2 mg/dL (2.5-4.9); SODIUM SERUM 130 mmol/L (136-145)
[2017-01-22 06:42] LABS: POTASSIUM SERUM 2.9 mmol/L (3.5-5.1)
--- NOTE | 2017-01-22 08:01 | NUR ---
PT AWAKE, ALERT TO PERSON, , DATE, PLACE AND TIME. SPEECH CLEAR. NO SEIZURE ACTIVITY NOTED. SEIZURE PRECAUTIONS IN PLACE. CALM AND COOPERATIVE AT THIS TIME. BED ALARM ON FOR SAFETY. FALL PRECAUTIONS. INSTRUCTED TO CALL NURSE WHEN NEEDS TO GET OOB. VERBALIZED UNDERSTANDING. TEMP 98.5. TELE #2 SINUS RHYTHM. C/O "ACID IN MY THROAT." ON GERD MEDICATION. RESP 18 EVEN. BREATH SOUNDS CLEAR. PULSEOX 97% RA. ABD SOFT, BOWEL TONES PRESENT. LBM=[id number]. VOIDING VIA URINAL WITHIN REACH. IV PATENT RAC INFUSING NORMAL SALINE 150CC/HR. k=-2.9. DR ORDERED FOR K+ RIDER. SIDE RAILS UP X3. WILL CONTINUE TO MONITOR FOR SAFETY.
--- NOTE | 2017-01-22 08:22 | NUR ---
K+ RIDER STARTED AT THIS TIME VIA IV RAC PATENT. DENIES BURNING OR PAIN AT SITE WITH INFUSION. PT IN BED. IMPULSIVE. WANTS TO GET OOB TO CHAIR. STATES "I FEEL LIKE I AM IN HALF-WAY WITH THE BED ALARM ON." INSTRUCTED WITH FALL PRECAUTIONS AND NEED FOR SAFETY TO CONTINUE WITH BED ALARM. INSTRUCTED TO CALL NURSE WHEN NEEDS TO GET OOB. VERBALIZED UNDERSTANDING.
--- NOTE | 2017-01-22 09:10 | NUR ---
DR GUZMÁN AND MEDICAL TEAM IN TO SPEAK WITH PT. UPDATED WITH AM LABS AND THAT K+RIDER IS INFUSING AT THIS TIME. TO INFUSE OVER 4 HOURS. ONCE K+RIDER COMPLETED, WILL HAVE BMP TO RECHECK LABS AND IF CONTINUES STABLE WITH PLAN ON DISCHARGE AND FOLLOWUP WITH MD. VERBALIZED UNDERSTANDING. BED ALARM ON.
[2017-01-22 10:22] VITALS: BP 126/73
--- NOTE | 2017-01-22 10:23 | NUR ---
PT UPSET RE:HAVING TO STAY IN BED DUE TO FALL PRECAUTIONS AND RECENT FALL. STATES "AT HOME WHEN I WATCH TV I CAN EAT ALOT OF POPCORN AND HAVE SNACKS. I WANT TO GO HOME TODAY." REVIEWED PLAN OF CARE. IV K+RIDER IN PROGRESS. DENIES PAIN AT SITE. IV INFUSION BAG CHANGED TO D5NS WITH 20 MEQ KCL AT 80CC/HR PER DR LARSEN ORDER.
--- NOTE | 2017-01-22 12:00 | NUR ---
HERE AT BEDSIDE. PAGE TO DR KEARNS. CAME OVER TO SPEAK WITH PT AND RE:TEST RESULTS AND DISCHARGE PLAN. EAGER TO HAVE HIM PLACED IN REHAB DUE TO ALCOHOL ABUSE. mEDS REVIEWED. SITTING IN BED AT THIS TIME. CALL LIGHT IN REACH.
--- NOTE | 2017-01-22 13:40 | NUR ---
PT SITTING ON EDGE OF BED. USED PLASTIC BOTTLE TO URINATE INTO. ASSISTED TO BATHROOM AND HE HAD MODERATE BM. BACK TO BED. WATCHING TV. IV CONTINUES PATENT. CALL LIGHT IN REACH. AWAITING LAB TO DRAW BMP TO RECHECK POTASSIUM LEVEL.
[2017-01-22 14:12] VITALS: BP 129/69
--- NOTE | 2017-01-22 14:20 | NUR ---
LAB HERE TO DRAW BLOOD.
--- NOTE | 2017-01-22 14:45 | NUR ---
[facility]STA[facility] KENZIE POOL HERE TO SPEAK WITH PT AND REGUARDING ALCOHOL COMMUNITY RESOURCES. WRITTEN INFORMATION PROVIDED.
[2017-01-22 15:21] LABS: CALCIUM 8.3 mg/dL (8.5-10.1); CHLORIDE SERUM 98 mmol/L (98-107); CREATININE SERUM 0.8 mg/dL (0.7-1.3); GFR1 > 60 mL/min; GLUCOSE SERUM 131 mg/dL (74-106); POTASSIUM SERUM 3.5 mmol/L (3.5-5.1); SODIUM SERUM 131 mmol/L (136-145)
--- NOTE | 2017-01-22 15:27 | NUR ---
LAB RESULTS REPORTED TO DR KEARNS K+=3.5. PLAN FOR DISCHARGE HOME THIS AFTERNOON.
[2017-01-22 16:14] VITALS: BP 129/69
[2017-01-22] MEDS ORDERED: ATIVAN1 MG PO (16:22)
[2017-01-22] MEDS ORDERED: THERAGRAN-M1 TA4 PO (16:22)
[2017-01-22] MEDS ORDERED: THI100 PO (16:23)
[2017-01-22] MEDS ORDERED: FOL1 PO (16:23)
[2017-01-22] MEDS ORDERED: PRI20 PO (16:23)
--- NOTE | 2017-01-22 17:30 | NUR ---
DR KEARNS IN TO SPEAK WITH PT AND . REVIEWED MEDICATION AND FOLLOWUP APPT WITH DR HUMPHREY. VERBALIZED UNDERSTANDING. TELE REMOVED AND RETURNED TO TELE UNIT. IV REMOVED CATH TIP INTACT. DC VIA WHEELCHAIR WITH BELONGINGS WITH AT HIS SIDE.
== END 2017-01-22 17:26 | disposition home or self-care (01) | DRG 243 ==
LOC: ED 12:52 → DU 15:40
PROVIDERS: Emergency Medicine; Family Medicine Sports Medicine; Internal Medicine Gastroenterology; ADMIT Family Medicine
PROC: 0DB58ZX Excision of Esophagus, Via Natural or Artificial Opening Endoscopic, Diagnostic (ICD-10-PCS; principal; 2017-01-21 08:00)
PROC: 0DB68ZX Excision of Stomach, Via Natural or Artificial Opening Endoscopic, Diagnostic (ICD-10-PCS; 2017-01-21 08:00)
DX: K22.11 Ulcer of esophagus with bleeding (principal); N17.0 Acute kidney failure with tubular necrosis; G92 Toxic encephalopathy; E83.51 Hypocalcemia; E87.1 Hypo-osmolality and hyponatremia; D69.59 Other secondary thrombocytopenia; T51.0X1A Toxic effect of ethanol, accidental (unintentional), initial encounter; F10.229 Alcohol dependence with intoxication, unspecified; I10 Essential (primary) hypertension; K21.9 Gastro-esophageal reflux disease without esophagitis; K44.9 Diaphragmatic hernia without obstruction or gangrene; K29.70 Gastritis, unspecified, without bleeding; R73.03 Prediabetes; R74.0 Nonspecific elevation of levels of transaminase and lactic acid dehydrogenase [LDH]; E78.5 Hyperlipidemia, unspecified; F17.210 Nicotine dependence, cigarettes, uncomplicated; Z68.30 Body mass index [BMI] 30.0-30.9, adult; Z86.711 Personal history of pulmonary embolism; Y90.7 Blood alcohol level of 200-239 mg/100 ml; Y92.59 Other trade areas as the place of occurrence of the external cause
CPT/HCPCS: 43235; 82962; 83880; 84439; C9113; G0480; J0696; J1200; J1610; J2060; J2250; J2270; J2310; J2405; J2765; J3010; J3360; J3480; J3490; J7030; J7042; J8597; Q0092

== ENCOUNTER 2017-10-10 23:55 | Inpatient (IN) | payer OTHER ==
[~2017-10-10] VITALS: Ht 182.9 cm; Wt 102.0 kg
[~2017-10-10 23:55] MED LIST changes: +TOPROL XL25 MG PO
[2017-10-11] VITALS: Ht 182.9 cm; Wt 102.0 kg
[2017-10-11 03:58] LABS: BASOPHIL % 1.7 % (0-2); PLATELET COUNT 166 x10^3mcL (130-400)
[2017-10-11 04:13] LABS: CALCIUM 8.8 mg/dL (8.5-10.1); CARBON DIOXIDE 26.6 mmol/L (21-32); CHLORIDE SERUM 90 mmol/L (98-107); CREATININE SERUM 0.8 mg/dL (0.7-1.3); GFR1 > 60 mL/min; GLUCOSE SERUM 114 mg/dL (74-106); POTASSIUM SERUM 3.7 mmol/L (3.5-5.1); SODIUM SERUM 133 mmol/L (136-145)
[2017-10-11 04:25] LABS: ALBUMIN 4.4 g/dL (3.4-5.0); ALKALINE PHOSPHATASE 81 U/L (46-116); ALT/SGPT 60 U/L (16-63); AST/SGOT 61 U/L (15-37); FREE T4 1.03 ng/dL (0.76-1.46); LIPASE 251 IU/L (73-393)
[2017-10-11 04:30] LABS: TOTAL PROTEIN, SERUM 8.8 g/dL (6.4-8.2)
[2017-10-11 04:43] LABS: microscopic required? YES; urine erythrocyte 2+ (NEGATIVE)
[2017-10-11 04:51] LABS: AMPHETAMINE QUAL UR NONE DETECTED (See below)
[2017-10-11 09:04] LABS: MAGNESIUM 2.4 mg/dL (1.8-2.4); PHOSPHOROUS 3.1 mg/dL (2.5-4.9)
[2017-10-11 09:10] LABS: CHOLESTEROL/HDL RATIO 2.4
[2017-10-11 12:29] VITALS: BP 148/86
[2017-10-11 17:38] VITALS: BP 139/73
[2017-10-11 22:31] VITALS: BP 146/81
[2017-10-12 05:21] VITALS: BP 133/90
[2017-10-12 06:18] LABS: BASOPHIL % 0.3 % (0-2)
[2017-10-12 06:34] LABS: CALCIUM 8.5 mg/dL (8.5-10.1); CHLORIDE SERUM 95 mmol/L (98-107); CREATININE SERUM 0.7 mg/dL (0.7-1.3); GFR1 > 60 mL/min; GLUCOSE SERUM 104 mg/dL (74-106); MAGNESIUM 2.3 mg/dL (1.8-2.4); PHOSPHOROUS 2.5 mg/dL (2.5-4.9); POTASSIUM SERUM 3.6 mmol/L (3.5-5.1); SODIUM SERUM 133 mmol/L (136-145)
[2017-10-12 06:58] LABS: PLATELET COUNT 96 x10^3mcL (130-400)
[2017-10-12 13:15] VITALS: BP 123/82
[2017-10-12 17:02] VITALS: BP 139/73
[2017-10-12 21:22] VITALS: BP 155/88
[2017-10-13 06:10] VITALS: BP 144/78
[2017-10-13 06:28] LABS: CARBON DIOXIDE 27.4 mmol/L (21-32); CHLORIDE SERUM 103 mmol/L (98-107); CREATININE SERUM 0.8 mg/dL (0.7-1.3); GFR1 > 60 mL/min; GLUCOSE SERUM 139 mg/dL (74-106); POTASSIUM SERUM 3.4 mmol/L (3.5-5.1); SODIUM SERUM 139 mmol/L (136-145)
[2017-10-13 07:04] LABS: BASOPHIL % 0.4 % (0-2)
[2017-10-13 07:22] LABS: PLATELET COUNT 103 x10^3mcL (130-400)
[2017-10-13 10:15] VITALS: BP 137/75
[2017-10-13 11:36] VITALS: BP 137/75
[2017-10-13 13:07] VITALS: BP 133/79
[2017-10-13] MEDS ORDERED: GOOD SENSE OMEP20 MG PO (14:24)
[2017-10-13] MEDS ORDERED: LIB25 PO (14:24)
== END 2017-10-13 15:35 | disposition home or self-care (01) | DRG 243 ==
LOC: ED 23:55 → DU 10-11 05:51
PROVIDERS: Emergency Medicine; Family Medicine
DX: K21.9 Gastro-esophageal reflux disease without esophagitis (principal); N17.0 Acute kidney failure with tubular necrosis; M94.0 Chondrocostal junction syndrome [Tietze]; F10.129 Alcohol abuse with intoxication, unspecified; F33.1 Major depressive disorder, recurrent, moderate; R73.03 Prediabetes; S09.90XA Unspecified injury of head, initial encounter; E87.1 Hypo-osmolality and hyponatremia; Y90.9 Presence of alcohol in blood, level not specified; I10 Essential (primary) hypertension; R74.0 Nonspecific elevation of levels of transaminase and lactic acid dehydrogenase [LDH]; E78.1 Pure hyperglyceridemia; E78.5 Hyperlipidemia, unspecified; R80.9 Proteinuria, unspecified; E87.8 Other disorders of electrolyte and fluid balance, not elsewhere classified; F41.9 Anxiety disorder, unspecified; E78.00 Pure hypercholesterolemia, unspecified; Z86.711 Personal history of pulmonary embolism; Z68.33 Body mass index [BMI] 33.0-33.9, adult; F17.210 Nicotine dependence, cigarettes, uncomplicated; X58.XXXA Exposure to other specified factors, initial encounter; Y93.89 Activity, other specified; Y92.89 Other specified places as the place of occurrence of the external cause
CPT/HCPCS: 83880; 84439; 97535-GP; C9113; G0480; J1644; J2060; J2405; J3490; J7030; Q0092

== ENCOUNTER 2018-08-07 11:08 | Emergency (ER) | payer OTHER ==
[~2018-08-07] VITALS: Ht 180.3 cm; Wt 136.1 kg
[~2018-08-07 11:08] MED LIST changes: +GOOD SENSE OMEP20 MG PO; +LIB25 PO
[2018-08-07 11:58] LABS: BASOPHIL % 0.9 % (0-2); PLATELET COUNT 210 x10^3mcL (130-400); RED CELL DISTRIBUTION WIDTH 13.9 % (11.5-14.5)
[2018-08-07 12:01] LABS: CALCIUM 7.6 mg/dL (8.5-10.1); CARBON DIOXIDE 18.8 mmol/L (21-32); CHLORIDE SERUM 94 mmol/L (98-107); CREATININE SERUM 1.2 mg/dL (0.7-1.3); GFR1 > 60 mL/min; GLUCOSE SERUM 149 mg/dL (74-106); POTASSIUM SERUM 4.2 mmol/L (3.5-5.1); SODIUM SERUM 131 mmol/L (136-145)
[2018-08-07 12:06] LABS: ALKALINE PHOSPHATASE 77 U/L (46-116); ALT/SGPT 68 U/L (16-63); AST/SGOT 110 U/L (15-37); BILIRUBIN TOTAL 0.47 mg/dL (0.20-1.00); LIPASE 207 IU/L (73-393); TOTAL PROTEIN, SERUM 8.2 g/dL (6.4-8.2)
[2018-08-07 16:58] VITALS: BP 140/82
== END 2018-08-07 17:57 | disposition home or self-care (01) ==
LOC: ED 11:08
PROVIDERS: Emergency Medicine
DX: F10.129 Alcohol abuse with intoxication, unspecified (principal); R10.84 Generalized abdominal pain; I10 Essential (primary) hypertension; E78.00 Pure hypercholesterolemia, unspecified; F41.9 Anxiety disorder, unspecified
CPT/HCPCS: G0480; J1630; J2060; J3411; J3475; J3490; J7030

== ENCOUNTER 2019-02-18 23:08 | Emergency (ER) | payer OTHER ==
[~2019-02-18] VITALS: Ht 185.4 cm; Wt 118.4 kg
[2019-02-18 23:12] VITALS: Ht 185.4 cm; Wt 118.4 kg
[2019-02-19 00:05] LABS: BASOPHIL % 1.3 % (0-2); PLATELET COUNT 153 x10^3mcL (130-400)
[2019-02-19 00:06] LABS: RED CELL DISTRIBUTION WIDTH 15.1 % (11.5-14.5)
[2019-02-19 00:19] LABS: CALCIUM 7.2 mg/dL (8.5-10.1); CARBON DIOXIDE 18.2 mmol/L (21-32); CHLORIDE SERUM 94 mmol/L (98-107); CREATININE SERUM 1.1 mg/dL (0.7-1.3); GFR1 > 60 mL/min; GLUCOSE SERUM 113 mg/dL (74-106); POTASSIUM SERUM 4.4 mmol/L (3.5-5.1); SODIUM SERUM 130 mmol/L (136-145)
[2019-02-19 00:53] LABS: ALBUMIN 3.5 g/dL (3.4-5.0); ALKALINE PHOSPHATASE 66 U/L (46-116); ALT/SGPT 54 U/L (16-63); AST/SGOT 60 U/L (15-37); BILIRUBIN TOTAL 0.6 mg/dL (0.20-1.00); TOTAL PROTEIN, SERUM 7.5 g/dL (6.4-8.2)
[2019-02-19 01:50] LABS: AMPHETAMINE QUAL UR NONE DETECTED (See below)
[2019-02-19 02:22] VITALS: BP 126/75
== END 2019-02-19 02:22 | disposition home or self-care (01) ==
LOC: ED 23:08
PROVIDERS: Specialist
DX: F10.129 Alcohol abuse with intoxication, unspecified (principal); Y90.9 Presence of alcohol in blood, level not specified; I10 Essential (primary) hypertension; E78.00 Pure hypercholesterolemia, unspecified; Z98.890 Other specified postprocedural states
CPT/HCPCS: J1630; J7030